=== PATIENT | female | born 1970 | race Caucasian/White ===

== ENCOUNTER 2016-12-06 21:14 | Observation (INO) ==
[2016-12-06] MEDS ORDERED: 0.9 % Sodium Chloride 1,000 ML IVC ONE (21:18)
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
[2016-12-06] MEDS ORDERED: 0.9 % Sodium Chloride 1,000 ML ONE (21:20)
[2016-12-06 21:30] LABS: Basophils % 0.2 %; Eosinophils % 0.4 %; Hematocrit 37.2 % (35.3-44.9); Hemoglobin 12.2 g/dL (11.5-15.4); Immature Granulocytes % 0.3 % (0-4); Lymphocytes % 26.8 %; Mean Corpuscular HGB Conc 32.8 g/dL (31.6-35.5); Mean Corpuscular Hemoglobin 29.6 pg (28.0-33.3); Mean Corpuscular Volume 90.3 fL (83.0-100.0); Mean Platelet Volume 9.5 fL (9.4-12.4); Monocytes # 0.8 K/mcL (0.0-1.3); Monocytes % 6.9 %; Neutrophils # 7.3 K/mcL (1.6-8.9); Platelet Count 290 K/mcL (140-400); Red Blood Count 4.12 M/mcL (3.82-4.97); Red Cell Distribution Width 13.4 % (11.5-14.5); Segmented Neutrophils % 65.4 %
[2016-12-06 21:36] LABS: INR 1.2; Prothrombin Time 12.6 Seconds (9.4-12.1)
[2016-12-06 21:39] LABS: Activated Partial Thrombo Time 34.1 Seconds (26.0-36.0)
[2016-12-06 21:46] LABS: Alanine Aminotransferase 18 Units/L (0-55); Albumin 3.8 g/dL (3.5-5.0); Albumin/Globulin Ratio 0.9 (1.1-2.2); Alkaline Phosphatase 99 Units/L (38-126); Aspartate Amino Transferase 25 Units/L (5-34); BUN/Creatinine Ratio 12 (6-26); Bilirubin,Direct 0.3 mg/dL (0.0-0.5); Bilirubin,Indirect 0.4 mg/dL (0.0-1.2); Bilirubin,Total 0.7 mg/dL (0.2-1.2); Blood Urea Nitrogen 13 mg/dL (7-20); Calcium 9.8 mg/dL (8.6-10.8); Carbon Dioxide 24 mEq/L (19-29); Chloride 109 mEq/L (98-109); Ethanol < 10 mg/dL (0-10); Globulin 4.1 g/dL (2.4-3.5); Glucose 101 mg/dL (70-99); Osmolality,Calculated 298 (280-300); Potassium 3.9 mEq/L (3.5-4.5); Sodium 144 mEq/L (136-145); Total Protein 7.9 g/dL (6.0-8.3); eGFR For African Americans > 60 (> 60); eGFR For Non-African Americans 52 (> 60)
[2016-12-06 22:10] LABS: Thyroid Stimulating Hormone 1.188 mcIU/mL (0.350-4.840)
[2016-12-06 22:37] LABS: Bilirubin,Urine Negative (Negative); Blood,Urine Negative (Negative); Clarity,Urine Cloudy (Clear); Color,Urine Yellow (Yellow); Glucose,Urine (UA) Normal (Normal); Ketones,Urine Negative (Negative); Leukocyte Esterase,Urine Large (Negative); Nitrite,Urine Negative (Negative); Protein,Urine Negative (Neg-Trace); Specific Gravity,Urine 1.011 (1.010-1.025); Urobilinogen,Urine Normal (Normal)
[2016-12-06 22:40] LABS: Bacteria,Urine None Seen per hpf (None-Few); Hyaline Casts,Urine None Seen per lpf (None-Few); RBC,Urine 0-3 per hpf (0-3); Squamous Epithelial Cell,Urine Many per lpf (None-Few); WBC,Urine 30-50 per hpf (0-3)
[2016-12-06 22:43] LABS: Amphetamine Screen,Urine Negative ng/mL (Cutoff=1000); Barbiturate Screen,Urine Negative ng/mL (Cutoff=200); Benzodiazepines Screen,Urine Positive ng/mL (Cutoff=200); Cannabinoid Screen,Urine Negative ng/mL (Cutoff = 50); Cocaine Screen,Urine Negative ng/mL (Cutoff= 300); Opiate Screen,Urine Negative ng/mL (Cutoff=300); Phencyclidine Screen,Urine Negative ng/mL (Cutoff=25)
[2016-12-06] MEDS ORDERED: Ibuprofen 600 MG TABLET PO ONE (23:07)
[2016-12-06] MEDS ORDERED: Ibuprofen 400 MG TABLET PO ONE (23:30)
[2016-12-06] MEDS ORDERED: Ondansetron 4 MG/2 ML VIAL IVP PRN (23:36)
[2016-12-06] MEDS ORDERED: Acetaminophen 325 MG TABLET PO PRN (23:36)
[2016-12-06] MEDS ORDERED: Naloxone 0.4 MG/ML INJ IVP PRN (23:36)
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
[2016-12-07] MEDS: 0.9 % Sodium Chloride 1,000 ML IVC SCH ×2 (00:39→10:57)
[2016-12-07 05:41] LABS: Basophils % 0.2 %; Eosinophils # 0.1 K/mcL (0.0-0.6); Eosinophils % 0.6 %; Hematocrit 33.1 % (35.3-44.9); Hemoglobin 10.7 g/dL (11.5-15.4); Immature Granulocytes % 0.2 % (0-4); Lymphocytes # 2.9 K/mcL (0.6-4.6); Lymphocytes % 34.8 %; Mean Corpuscular HGB Conc 32.3 g/dL (31.6-35.5); Mean Corpuscular Volume 92.7 fL (83.0-100.0); Monocytes # 0.6 K/mcL (0.0-1.3); Monocytes % 7.5 %; Neutrophils # 4.6 K/mcL (1.6-8.9); Platelet Count 257 K/mcL (140-400); Red Blood Count 3.57 M/mcL (3.82-4.97); Red Cell Distribution Width 13.6 % (11.5-14.5); Segmented Neutrophils % 56.7 %
[2016-12-07 06:04] LABS: BUN/Creatinine Ratio 12 (6-26); Blood Urea Nitrogen 10 mg/dL (7-20); Calcium 8.6 mg/dL (8.6-10.8); Carbon Dioxide 24 mEq/L (19-29); Chloride 114 mEq/L (98-109); Glucose 73 mg/dL (70-99); Osmolality,Calculated 298 (280-300); Potassium 3.9 mEq/L (3.5-4.5); Sodium 145 mEq/L (136-145); eGFR For African Americans > 60 (> 60); eGFR For Non-African Americans > 60 (> 60)
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
[2016-12-07 14:56] VITALS: BP 158/85
--- NOTE | 2016-12-07 16:16 | Consult Note ---
Date of Encounter: 12/07/16 Time of Encounter: 14:30 Assessment & Recommendation (1) Bipolar disorder Current visit: Yes Status: Chronic Assessment & Recommendation: I recommended admission to psychiatric unit for stabilization of the patient on her medication on an elective basis, she declined and will follow-up with her outpatient mental health clinic. Thank you for consultation Patient is stable from psychiatric standpoint and can be discharged when medically stable. Qualifiers: Active/Remission status: currently active Current bipolar episode type: depressed Current episode severity: moderate Qualified Code(s): F31.32 - Bipolar disorder, current episode depressed, moderate History of Present Illness Patient: new to practice Requesting Physician: Carin Skinner Reason for consult: Depression, bipolar, altered mental status History of present illness: Ms. Ferrell is a 46 year old female admitted to the hospital for treatment of altered mental status and possible overdose on medication. Psychiatric consultation was requested to evaluate her symptoms and possible overdose. Patient has history of bipolar disorder and depression and has been in psychiatric treatment for many years and recently was changed to a new mental health's service that she was telepsychiatry for medication management. Patient stated her medication has been changed recently but she was not aware of the change augment remember medication name. She denied having an overdose and denied any suicidal ideation or intent and her was in the room and confirmed that she never attempted overdose or suicide in the past. She expresses dissatisfaction with her current psychiatric appointments and believe that she needs medication review and evaluation. When I recommended that patient be admitted to psychiatric units. Evaluate and stabilize her condition she declined and the confirms that she would not be willing to be admitted to psychiatry. CC: Carin Skinner Past Med Surg Social Fam HX - Past Medical History Medical history: arthritis, coronary artery disease, GERD, hyperlipidemia, hypertension, other - Past Surgical History Surgical History: , cholecystectomy - Social History Smoking Status: Never smoker Smokeless Tobacco Status: No Alcohol use: none Drug use: none - Family History Mother Adopted: No Living Status: Still Living Medications & Allergies Ferrous Sulfate [Iron] 325 mg PO DAILY 08/08/15 [History] Gabapentin [Neurontin] 300 mg PO BID 08/08/15 [History] Omeprazole [PriLOSEC] 20 mg PO DAILY 08/08/15 [History] Aspirin 81 mg PO DAILY #31 tab.chew 08/10/15 [Rx] Baclofen 10 mg PO TID 12/06/16 [History] Losartan [Cozaar] 25 mg PO DAILY 12/06/16 [History] OLANZapine [Zyprexa] 5 mg PO HS 12/06/16 [History] diazePAM [Valium] 5 mg PO BID PRN 12/06/16 [History] FLUoxetine HCl [Prozac] 20 mg PO DAILY 12/07/16 [History] Pravastatin Sodium [Pravastatin Sodium] 10 mg PO DAILY 12/07/16 [History] Allergies quetiapine [From Seroquel] Adverse Reaction (Verified 12/07/16 09:58) Shakiness Mental Status Exam Patient orientation: Yes Person, Yes Time, Yes Place Level of alertness: Alert Patient appearance: Appropriate, Unkempt, Disheveled Behavior: cooperative, anxious, tearful, restless, guarded Psychomotor activity: Increased Eye contact: Minimal Contact Mood description: Anxious, Labile Affect description: congruent with mood, constricted Speech pattern: Normal rate, Normal rhythm, Normal tone, Coherent Speech volume: Normal Thought process: Linear, Goal Oriented Thought content: No Suicidal ideation, No Homicidal ideation, No Overt delusions Perceptual disturbances: No Auditory hallucinations, No Visual hallucinations Attention span: Capable of Focused Attention Memory description: Grossly Intact Patient reliability: Reliable Historian Intelligence estimate: Average Judgment: Limited Insight: Partial Results - Vital Signs Vital signs: Temp Pulse Resp BP Pulse Ox 97.5 F L 60 16 158/85 96 12/07/16 14:54 12/07/16 14:54 12/07/16 14:54 12/07/16 14:54 12/07/16 14:54 - Labs Labs: Laboratory Last Values WBC 8.2 K/mcL (4.3-11.1) 12/07/16 03:46 RBC 3.57 M/mcL (3.82-4.97) L 12/07/16 03:46 Hgb 10.7 g/dL (11.5-15.4) L D 12/07/16 03:46 Hct 33.1 % (35.3-44.9) L 12/07/16 03:46 MCV 92.7 fL (83.0-100.0) 12/07/16 03:46 MCH 30.0 pg (28.0-33.3) 12/07/16 03:46 MCHC 32.3 g/dL (31.6-35.5) 12/07/16 03:46 RDW 13.6 % (11.5-14.5) 12/07/16 03:46 Plt Count 257 K/mcL (140-400) 12/07/16 03:46 MPV 10.0 fL (9.4-12.4) 12/07/16 03:46 Immature Gran % 0.2 % (0-4) 12/07/16 03:46 Seg Neutrophils % 56.7 % 12/07/16 03:46 Lymphocytes % 34.8 % 12/07/16 03:46 Monocytes % 7.5 % 12/07/16 03:46 Eosinophils % 0.6 % 12/07/16 03:46 Basophils % 0.2 % 12/07/16 03:46 Neutrophils # 4.6 K/mcL (1.6-8.9) 12/07/16 03:46 Lymphocytes # 2.9 K/mcL (0.6-4.6) 12/07/16 03:46 Monocytes # 0.6 K/mcL (0.0-1.3) 12/07/16 03:46 Eosinophils # 0.1 K/mcL (0.0-0.6) 12/07/16 03:46 Basophils # 0.0 K/mcL (0.0-0.2) 12/07/16 03:46 PT 12.6 Seconds (9.4-12.1) H 12/06/16 21:23 INR 1.2 12/06/16 21:23 APTT 34.1 Seconds (26.0-36.0) 12/06/16 21:23 Sodium 145 mEq/L (136-145) 12/07/16 03:46 Potassium 3.9 mEq/L (3.5-4.5) 12/07/16 03:46 Chloride 114 mEq/L (98-109) H 12/07/16 03:46 Carbon Dioxide 24 mEq/L (19-29) 12/07/16 03:46 BUN 10 mg/dL (7-20) 12/07/16 03:46 Creatinine 0.83 mg/dL (0.57-1.11) 12/07/16 03:46 Est GFR ( Amer) > 60 (> 60) 12/07/16 03:46 Est GFR (Non-Af Amer) > 60 (> 60) 12/07/16 03:46 BUN/Creatinine Ratio 12 (6-26) 12/07/16 03:46 Glucose 73 mg/dL (70-99) 12/07/16 03:46 POC Glucose 109 (58-89) H 12/06/16 21:21 Calculated Osmolality 298 (280-300) 12/07/16 03:46 Calcium 8.6 mg/dL (8.6-10.8) 12/07/16 03:46 Total Bilirubin 0.7 mg/dL (0.2-1.2) 12/06/16 21:23 Direct Bilirubin 0.3 mg/dL (0.0-0.5) 12/06/16 21:23 Indirect Bilirubin 0.4 mg/dL (0.0-1.2) 12/06/16 21:23 AST 25 Units/L (5-34) 12/06/16 21:23 ALT 18 Units/L (0-55) 12/06/16 21:23 Alkaline Phosphatase 99 Units/L (38-126) 12/06/16 21:23 Troponin I 0.00 ng/mL (0-0.03) 12/06/16 21:23 Serum Total Protein 7.9 g/dL (6.0-8.3) 12/06/16 21:23 Albumin 3.8 g/dL (3.5-5.0) 12/06/16 21:23 Globulin 4.1 g/dL (2.4-3.5) H 12/06/16 21:23 Albumin/Globulin Ratio 0.9 (1.1-2.2) L 12/06/16 21:23 TSH 1.188 mcIU/mL (0.350-4.840) 12/06/16 21:23 Urine Color Yellow (Yellow) 12/06/16 22:15 Urine Clarity Cloudy (Clear) A 12/06/16 22:15 Urine pH 6.0 pH Units (5.0-8.0) 12/06/16 22:15 Ur Specific [place] 1.011 (1.010-1.025) 12/06/16 22:15 Urine Protein Negative mg/dL (Neg-Trace) 12/06/16 22:15 Urine Glucose (UA) Normal mg/dL (Normal) 12/06/16 22:15 Urine Ketones Negative mg/dL (Negative) 12/06/16 22:15 Urine Blood Negative (Negative) 12/06/16 22:15 Urine Nitrite Negative (Negative) 12/06/16 22:15 Urine Bilirubin Negative (Negative) 12/06/16 22:15 Urine Urobilinogen Normal mg/dL (Normal) 12/06/16 22:15 Ur Leukocyte Esterase Large (Negative) H 12/06/16 22:15 Urine Microscopic RBC 0-3 per hpf (0-3) 12/06/16 22:15 Urine Microscopic WBC 30-50 per hpf (0-3) H 12/06/16 22:15 Ur Squamous Epith Cells Many per lpf (None-Few) H 12/06/16 22:15 Urine Bacteria None Seen per hpf (None-Few) 12/06/16 22:15 Hyaline Casts None Seen per lpf (None-Few) 12/06/16 22:15 Ur Culture Indicated? YES (NO) A 12/06/16 22:15 Urine Opiates Screen Negative ng/mL (Hhwqmw=249) 12/06/16 22:15 Ur Barbiturates Screen Negative ng/mL (Ixizoi=953) 12/06/16 22:15 Ur Phencyclidine Scrn Negative ng/mL (Cutoff=25) 12/06/16 22:15 Ur Amphetamines Screen Negative ng/mL (Mbfoqr=3490) 12/06/16 22:15 U Benzodiazepines Scrn Positive ng/mL (Qklaap=930) H 12/06/16 22:15 Urine Cocaine Screen Negative ng/mL (Cutoff= 300) 12/06/16 22:15 U Marijuana (THC) Screen Negative ng/mL (Cutoff = 50) 12/06/16 22:15 Ethyl Alcohol < 10 mg/dL (0-10) 12/06/16 21:23 Consult Discharge Plan - Plan Referrals: Kobe Cruz MD [Primary Care Provider] -
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
--- NOTE | 2016-12-07 18:16 | Electrocardiograph Report ---
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
== END 2016-12-07 18:25 | disposition home or self-care (01) ==
LOC: EMEROO 21:14 → 3BNU 21:14 → SUATTDRO 23:10 → 3BNU 23:40
PROVIDERS: ADMIT Internal Medicine; ATTEND Nurse Practitioner Family

== ENCOUNTER 2017-11-29 21:54 | Observation (INO) ==
[2017-11-29] MEDS ORDERED: Nitroglycerin 0.4 MG TAB.SUBL SL ONE (22:09)
[2017-11-29] MEDS ORDERED: Pantoprazole 40 MG VIAL IVP ONE (22:09)
[2017-11-29] MEDS ORDERED: Aspirin 81 MG TAB.CHEW PO ONE (22:09)
--- NOTE | 2017-11-29 22:11 | Emergency Department Note ---
Disposition Clinical Impression: Dyspnea Chest pain Qualifiers: Chest pain type: unspecified Qualified Code(s): R07.9 - Chest pain, unspecified Disposition: Admitted As Inpatient Condition: Fair Time of Disposition: 00:30 Chest Pain HPI - General Chief Complaint: ED Chest Pain Stated Complaint: chest pain Time Seen by Provider: 11/29/17 22:08 Source: patient Limitations: no limitations Vital Signs Reviewed: Yes Nursing Notes Reviewed: Yes - History of Present Illness HPI Narrative: Patient is a 47-year-old female who presents to [facility] ED with a chief complaint of substernal chest pain. States it is a pressure sensation. Started approximately 45 minutes ago. Denies any nausea, vomiting, fever or chills. States she just vaporize marijuana approximately 3 hours prior. She also ate a large tub ice cream prior to arrival. Denies any abdominal pain, problems with urination or bowel movements. No prior history of cardiac problems. Pt complaint: chest pain Onset (ago): Just [facility] Duration: constant Pain Location: substernal Severity: severe Severity scale (1-10): 10 Quality: aching, heaviness Pain Radiation: none Improves with: nothing Worsens with: nothing Associated symptoms: Denies: nausea, vomiting, dyspnea, fever, cough Treatments prior to arrival chest pain: none - Related Data Home Medications Medication Instructions Recorded Confirmed Ferrous Sulfate [Iron] 325 mg PO DAILY 08/08/15 12/07/16 Gabapentin [Neurontin] 300 mg PO BID 08/08/15 12/07/16 Omeprazole [PriLOSEC] 20 mg PO DAILY 08/08/15 12/07/16 Baclofen 10 mg PO TID 12/06/16 12/07/16 Losartan [Cozaar] 25 mg PO DAILY 12/06/16 12/07/16 OLANZapine [Zyprexa] 5 mg PO HS 12/06/16 12/07/16 diazePAM [Valium] 5 mg PO BID PRN 12/06/16 12/07/16 FLUoxetine HCl [Prozac] 20 mg PO DAILY 12/07/16 12/07/16 Pravastatin Sodium 10 mg PO DAILY 12/07/16 12/07/16 Previous Rx's Medication Instructions Recorded Aspirin 81 mg PO DAILY #31 tab.chew 08/10/15 Ciprofloxacin HCl [Cipro] 250 mg PO BID #10 tab 12/07/16 predniSONE [PredniSONE] 60 mg PO DAILY #15 tablet 01/29/17 Tramadol HCl [Ultram] 50 mg PO TID PRN #10 tab 04/11/17 Allergies Allergy/AdvReac Type Severity Reaction Status Date / Time quetiapine [From Seroquel] AdvReac Shakiness Verified 04/11/17 16:49 All systems ED: reviewed and negative except as stated. 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: endometriosis, other - Social History Smoking Status: Never smoker Alcohol use: Reports: none Drug use: Reports: marijuana Physical Exam - General Limitations: no limitations General appearance: alert, in no apparent distress - Head Head exam: atraumatic, normocephalic, normal inspection - Eye Eye exam: Present: normal appearance, EOMI - ENT ENT exam: normal exam, normal oropharynx, mucous membranes moist - Neck Neck exam: Present: normal inspection, full ROM, trachea midline - Chest Chest inspection: Present: normal inspection, symmetric chest wall rise - Respiratory Respiratory exam: Present: normal lung sounds bilaterally - Cardiovascular Cardiovascular exam: Present: regular rate, normal rhythm - Abdominal Exam Abdominal exam: Present: soft, Non-Tender. Absent: tenderness, distention, guarding, rebound, rigidity - Extremities Exam Extremities exam: Present: normal inspection, full ROM. Absent: tenderness, pedal edema - Back Exam Back exam: Present: normal inspection, full ROM. Absent: tenderness - Neurological Exam Neurological exam: Present: alert, oriented X3 - Psychiatric Psychiatric exam: Present: normal affect, normal mood - Skin Skin exam: Present: warm, dry, intact, normal color Course Course Narrative: Patient seen and examined. Chest pain. Recent cannabinoid use. No history of prior cardiac issues. We will do a cardiopulmonary workup. It is possible that this may be related to her acid reflux due to her just having eaten an entire tablet ice cream prior to this. We will try some protonic as well. We will also try nitroglycerin to see if this helps relieve any pain. We will give her a full dose aspirin. - Reevaluation(s) Reevaluation #1: Patient's chest pain improved from a 10 out of 10 to a 2 out of 10 following sublingual nitroglycerin. The lab work is otherwise unremarkable. I discussed the results with the patient. Recommend admission for chest pain/cardiac workup. Patient understands and agrees to be admitted. Patient given an aspirin. I discussed with the hospitalist who has accepted patient for admission. Time: 00:29 Vital Signs Temperature 97.6 F 11/29/17 21:54 Pulse Rate 85 11/29/17 21:54 Respiratory Rate 26 11/29/17 21:54 Blood Pressure 155/90 11/29/17 21:54 O2 Sat by Pulse Oximetry 100 11/29/17 21:54 Temperature 97.5 F L 11/30/17 02:42 Pulse Rate 78 11/30/17 02:42 Respiratory Rate 18 11/30/17 02:42 Blood Pressure 140/91 11/30/17 02:42 O2 Sat by Pulse Oximetry 98 11/30/17 02:42 Oxygen Delivery Oxygen Delivery Nasal Cannula Chest Pain - Medical Records Medical records reviewed: Yes I reviewed the patient's medical records. - Lab Data Lab results reviewed: Yes I reviewed the patient's lab results. Result diagrams: 11/29/17 22:19 11/29/17 22:19 Lab Results 11/29/17 11/29/17 11/29/17 Range/Units 22:09 22:19 22:19 WBC 8.7 (4.3-11.1) K/mcL RBC 3.82 (3.82-4.97) M/mcL Hgb 12.2 (11.5-15.4) g/dL Hct 34.6 L (35.3-44.9) % MCV 90.6 (83.0-100.0) fL MCH 31.9 (28.0-33.3) pg MCHC 35.3 (31.6-35.5) g/dL RDW 13.6 (11.5-14.5) % Plt Count 260 (140-400) K/mcL MPV 9.7 (9.4-12.4) fL Immature Gran % 0.1 (0-4) % Seg Neutrophils % 56.2 % Lymphocytes % 36.9 % Monocytes % 6.1 % Eosinophils % 0.5 % Basophils % 0.2 % Neutrophils # 4.9 (1.6-8.9) K/mcL Lymphocytes # 3.2 (0.6-4.6) K/mcL Monocytes # 0.5 (0.0-1.3) K/mcL Eosinophils # 0.0 (0.0-0.6) K/mcL Basophils # 0.0 (0.0-0.2) K/mcL Nucleated RBCs/100 WBC 0.2 H (0) /100 WBC D-Dimer (0-500) ng/mLFEU Sodium 138 (136-145) mEq/L Potassium 3.6 (3.5-5.1) mEq/L Chloride 107 (98-107) mEq/L Carbon Dioxide 22 L (23-29) mEq/L BUN 14 (6-20) mg/dL Creatinine 1.04 (0.60-1.20) mg/dL Est GFR ( Amer) > 60 (> 60) Est GFR (Non-Af Amer) 57 L (> 60) BUN/Creatinine Ratio 13 (6-26) Glucose 100 (70-105) mg/dL Calculated Osmolality 287 (280-300) Calcium 9.1 (8.6-10.3) mg/dL Troponin I < 0.03 (< 0.04) ng/mL Lipase 39 (11-82) Units/L 05//18 Range/Units 22:20 WBC (4.3-11.1) K/mcL RBC (3.82-4.97) M/mcL Hgb (11.5-15.4) g/dL Hct (35.3-44.9) % MCV (83.0-100.0) fL MCH (28.0-33.3) pg MCHC (31.6-35.5) g/dL RDW (11.5-14.5) % Plt Count (140-400) K/mcL MPV (9.4-12.4) fL Immature Gran % (0-4) % Seg Neutrophils % % Lymphocytes % % Monocytes % % Eosinophils % % Basophils % % Neutrophils # (1.6-8.9) K/mcL Lymphocytes # (0.6-4.6) K/mcL Monocytes # (0.0-1.3) K/mcL Eosinophils # (0.0-0.6) K/mcL Basophils # (0.0-0.2) K/mcL Nucleated RBCs/100 WBC (0) /100 WBC D-Dimer 439 (0-500) ng/mLFEU Sodium (136-145) mEq/L Potassium (3.5-5.1) mEq/L Chloride (98-107) mEq/L Carbon Dioxide (23-29) mEq/L BUN (6-20) mg/dL Creatinine (0.60-1.20) mg/dL Est GFR ( Amer) (> 60) Est GFR (Non-Af Amer) (> 60) BUN/Creatinine Ratio (6-26) Glucose (70-105) mg/dL Calculated Osmolality (280-300) Calcium (8.6-10.3) mg/dL Troponin I (< 0.04) ng/mL Lipase (11-82) Units/L - Radiology Data Radiology results reviewed: Yes I reviewed the patient's radiology results. Chest X-Ray 11/29/17 22:09 IMPRESSION: No acute cardiopulmonary process identified. D/ / Cesar Ferrer MD / Cesar Ferrer MD Interpreting Provider: Cesar Ferrer MD - EKG Data EKG attestation: Yes I reviewed and interpreted this EKG. EKG results narrative: EKG done at 2205 shows normal sinus rhythm with a rate of [address] elevation or depression noted. Normal axis. Prominent Q-wave noted in lead 3. No prior EKGs for comparison. Heart Score - Score History: Slightly Suspicious EKG: Non Specific repolarisation Disturbance Age: 45-65 Risk Factors: 1-2 risk factors Troponin: Less than normal limit HEART Score Total: 3 Attestation Statement - Attestation Attestation: I examined this patient and my medical decision-making was reviewed with the Resident Physician. I agree with the documented findings, disposition and treatment plan as described except to the extent set forth below. Patient has significant comorbidities and no previous cardiac workup and now having typical chest pain features. We will proceed with admission for turning of critical biomarkers as well as serial EKGs.
[2017-11-29 22:41] LABS: Basophils % 0.2 %; Eosinophils % 0.5 %; Hematocrit 34.6 % (35.3-44.9); Hemoglobin 12.2 g/dL (11.5-15.4); Immature Granulocytes % 0.1 % (0-4); Lymphocytes # 3.2 K/mcL (0.6-4.6); Lymphocytes % 36.9 %; Mean Corpuscular HGB Conc 35.3 g/dL (31.6-35.5); Mean Corpuscular Hemoglobin 31.9 pg (28.0-33.3); Mean Corpuscular Volume 90.6 fL (83.0-100.0); Mean Platelet Volume 9.7 fL (9.4-12.4); Monocytes # 0.5 K/mcL (0.0-1.3); Monocytes % 6.1 %; Neutrophils # 4.9 K/mcL (1.6-8.9); Nucleated Red Blood Cells 0.2 /100 WBC (0); Platelet Count 260 K/mcL (140-400); Red Blood Count 3.82 M/mcL (3.82-4.97); Red Cell Distribution Width 13.6 % (11.5-14.5); Segmented Neutrophils % 56.2 %
[2017-11-29 23:01] LABS: BUN/Creatinine Ratio 13 (6-26); Blood Urea Nitrogen 14 mg/dL (6-20); Calcium 9.1 mg/dL (8.6-10.3); Carbon Dioxide 22 mEq/L (23-29); Chloride 107 mEq/L (98-107); Glucose 100 mg/dL (70-105); Osmolality,Calculated 287 (280-300); Potassium 3.6 mEq/L (3.5-5.1); Sodium 138 mEq/L (136-145); eGFR For African Americans > 60 (> 60); eGFR For Non-African Americans 57 (> 60)
[2017-11-29 23:02] LABS: Troponin I < 0.03 ng/mL (< 0.04)
--- NOTE | 2017-11-30 00:10 | Internal Med History&Physical ---
Date of Encounter: 11/30/17 Time of Encounter: 00:09 Internal Medicine - H&P: HPI Chief complaint: chest pain Admitted From: Emergency Dept Plans for Post Hospital Care: Home History of present illness: Ms. Ferrell is a 47 year old female hypertension, HLD, bipolar disorder, GERD, marijuana use who presents with chest pain that first started this evening. It is substernal with radiation to the back. She was also diaphoretic and short of breath. She was driving at the time. Pain was 10/10. Came to the ED and given ASA 324 mg and SL nitro with close to resolution of pain. EKG with nothing acute. Chest x-ray was clear. labs show a creatinine that is above baseline. She was vaping before this and had a large amount of ice cream as well. Denies fever, chills, headache, blurry vision, nausea, vomiting, abdominal pain, diarrhea, constipation, urinary symptoms, or neurological symptoms. The patient never had cardiac workup in the past. Past Med Surg Social Fam HX - Past Medical History Medical history: arthritis, coronary artery disease, GERD, hyperlipidemia, hypertension, other Psychiatric history: anxiety, depression - Past Surgical History Surgical History: , cholecystectomy - Social History Smoking Status: Never smoker Smokeless Tobacco Status: (vap pen) Alcohol use: none Drug use: marijuana - Family History Mother Adopted: No Living Status: Still Living Internal Medicine - H&P: Meds Ferrous Sulfate [Iron] 325 mg PO DAILY 08/08/15 [History] Gabapentin [Neurontin] 300 mg PO BID 08/08/15 [History] Omeprazole [PriLOSEC] 20 mg PO DAILY 08/08/15 [History] Aspirin 81 mg PO DAILY #31 tab.chew 08/10/15 [Rx] Baclofen 10 mg PO TID 12/06/16 [History] Losartan [Cozaar] 25 mg PO DAILY 12/06/16 [History] OLANZapine [Zyprexa] 5 mg PO HS 12/06/16 [History] diazePAM [Valium] 5 mg PO BID PRN 12/06/16 [History] Ciprofloxacin HCl [Cipro] 250 mg PO BID #10 tab 12/07/16 [Rx] FLUoxetine HCl [Prozac] 20 mg PO DAILY 12/07/16 [History] Pravastatin Sodium 10 mg PO DAILY 12/07/16 [History] predniSONE [PredniSONE] 60 mg PO DAILY #15 tablet 01/29/17 [Rx] Tramadol HCl [Ultram] 50 mg PO TID PRN #10 tab 04/11/17 [Rx] 3 Allergy/AdvReac Type Severity Reaction Status Date / Time quetiapine [From Seroquel] AdvReac Shakiness Verified 04/11/17 16:49 All Systems PM: A 10-system review of systems was performed and is negative for pertinent findings except as documented above in the HPI. Review of systems: All systems reviewed are negative except as mentioned above - Constitutional Vitals: Temp Pulse Resp BP Pulse Ox 97.6 F 78 14 114/73 95 11/29/17 21:54 11/29/17 23:55 11/29/17 23:55 11/29/17 23:55 11/29/17 23:55 Exam: GEN: NAD HEENT: AT, NC, No cyanosis, oral mucosa is moist, No JVD Lymphatics: No lymphadenoapthy Eyes: Extrocular muscles intact, anicteric CVS:RRR. S1, S2, No m/r/g RESP: CTAB ABD: Soft, NT, ND, +BS EXT: No edema, No rashes, 2+ DP NEURO: Nonfocal, CN II-XII intact, No focal motor or sensory deficits Psych: Cooperative, Not anxious or depressed Internal Med - H&P Results - Labs CBC & Chem 7: 11/29/17 22:19 11/29/17 22:19 Labs: Short CBC 11/29/17 Range/Units 22:19 WBC 8.7 (4.3-11.1) K/mcL Hgb 12.2 (11.5-15.4) g/dL Hct 34.6 L (35.3-44.9) % Plt Count 260 (140-400) K/mcL Neutrophils # 4.9 (1.6-8.9) K/mcL BMP 11/29/17 22:19 Sodium 138 Potassium 3.6 Chloride 107 Carbon Dioxide 22 L BUN 14 Creatinine 1.04 Glucose 100 Calcium 9.1 Cardiac Enzymes 11/29/17 Range/Units 22:19 Troponin I < 0.03 (< 0.04) ng/mL - Impressions ITS Impressions Chest X-Ray 11/29/17 22:09 IMPRESSION: No acute cardiopulmonary process identified. D/ / Cesar Ferrer MD / Cesar Ferrer MD Interpreting Provider: Cesar Ferrer MD - Assessment and plan (1) Chest pain Current Visit: Yes Status: Acute Assessment and plan: We will admit the patient to telemetry. Trend cardiac enzymes. Stress test in the morning. Check A1c and lipid panel. Possibly GERD/GI symptoms after with vaping and eating ice cream. Patient is ready been given aspirin in the ED. We will resume home aspirin. Resume statin. Qualifiers: Chest pain type: unspecified Qualified Code(s): R07.9 - Chest pain, unspecified (2) Acute renal failure (ARF) Current Visit: Yes Status: Acute Assessment and plan: This is mild. We will gently hydrate and see what her kidney function improves in the morning. Avoid nephrotoxins. Qualifiers: Acute renal failure type: unspecified Qualified Code(s): N17.9 - Acute kidney failure, unspecified (3) Bipolar disorder Current Visit: No Status: Chronic Assessment and plan: Resume home medications. Qualifiers: Active/Remission status: currently active Current bipolar episode type: depressed Current episode severity: moderate Qualified Code(s): F31.32 - Bipolar disorder, current episode depressed, moderate (4) GERD (gastroesophageal reflux disease) Current Visit: No Status: Chronic Assessment and plan: Resume home meds. Qualifiers: Esophagitis presence: without esophagitis Qualified Code(s): K21.9 - Gastro -esophageal reflux disease without esophagitis (5) Hypertension Current Visit: No Status: Chronic Assessment and plan: Resume home antihypertensives. Qualifiers: Hypertension type: essential hypertension Qualified Code(s): I10 - Essential (primary) hypertension (6) DVT prophylaxis Current Visit: Yes Status: Acute Assessment and plan: Heparin subcutaneous - Time Spent With Patient Total time spent is greater than 50% in coordination of care (as documented) at patient's floor/unit and/or counseling patient:
[2017-11-30] MEDS ORDERED: Naloxone 0.4 MG/ML INJ IVP PRN (00:11)
[2017-11-30] MEDS ORDERED: Acetaminophen 325 MG TABLET PO PRN (00:11)
[2017-11-30] MEDS: 0.9 % Sodium Chloride 1,000 ML IVC SCH ×2 (02:35→15:44)
[2017-11-30] MEDS: *HR* Heparin 5,000 UNIT/ML VIAL SQ SCH ×3 (05:12→21:47)
[2017-11-30 05:30] LABS: Basophils % 0.3 %; Eosinophils # 0.1 K/mcL (0.0-0.6); Eosinophils % 0.8 %; Hematocrit 33.8 % (35.3-44.9); Hemoglobin 11.3 g/dL (11.5-15.4); Immature Granulocytes % 0.2 % (0-4); Lymphocytes # 1.9 K/mcL (0.6-4.6); Lymphocytes % 30.5 %; Mean Corpuscular HGB Conc 33.4 g/dL (31.6-35.5); Mean Corpuscular Hemoglobin 30.8 pg (28.0-33.3); Mean Corpuscular Volume 92.1 fL (83.0-100.0); Mean Platelet Volume 9.8 fL (9.4-12.4); Monocytes # 0.5 K/mcL (0.0-1.3); Monocytes % 8.3 %; Neutrophils # 3.8 K/mcL (1.6-8.9); Platelet Count 226 K/mcL (140-400); Red Blood Count 3.67 M/mcL (3.82-4.97); Red Cell Distribution Width 13.8 % (11.5-14.5); Segmented Neutrophils % 59.9 %
[2017-11-30] MEDS ORDERED: Regadenoson 0.4 MG/5 ML SYRINGE IVP ONE (05:34)
[2017-11-30 05:49] LABS: Troponin I < 0.03 ng/mL (< 0.04)
[2017-11-30 05:53] LABS: BUN/Creatinine Ratio 14 (6-26); Blood Urea Nitrogen 12 mg/dL (6-20); Calcium 8.5 mg/dL (8.6-10.3); Carbon Dioxide 24 mEq/L (23-29); Chloride 109 mEq/L (98-107); Chol/HDL Ratio 3.7 (0-4.9); Cholesterol 154 mg/dL (< 200); Glucose 110 mg/dL (70-105); HDL Cholesterol 42 mg/dL (40-59); LDL Cholesterol,Calculated 91 mg/dL (0-99); Osmolality,Calculated 288 (280-300); Potassium 3.8 mEq/L (3.5-5.1); Sodium 139 mEq/L (136-145); Triglycerides 107 mg/dL (< 150); eGFR For African Americans > 60 (> 60); eGFR For Non-African Americans > 60 (> 60)
[2017-11-30 08:47] LABS: Estimated Average Glucose 108 mg/dl; Hemoglobin A1C 5.4 %
--- NOTE | 2017-11-30 14:30 | Internal Med Progress Note ---
Date of Encounter: 11/30/17 Time of Encounter: 14:27 - Assessment and plan (1) Chest pain Current Visit: Yes Status: Acute Assessment and plan: Cont on tele so far neagtive trop No acute Ekg changes High risk for ACS with HTn, Age and obesity Agree with stress test. Pt is not able to finish full test today due to obesity cont ASA Qualifiers: Chest pain type: unspecified Qualified Code(s): R07.9 - Chest pain, unspecified (2) Hypertension Current Visit: No Status: Chronic Assessment and plan: Stable cont home meds Qualifiers: Hypertension type: essential hypertension Qualified Code(s): I10 - Essential (primary) hypertension (3) GERD (gastroesophageal reflux disease) Current Visit: No Status: Chronic Assessment and plan: Resume home meds. Qualifiers: Esophagitis presence: without esophagitis Qualified Code(s): K21.9 - Gastro -esophageal reflux disease without esophagitis (4) Bipolar disorder Current Visit: No Status: Chronic Assessment and plan: Resume home medications also suggested to f/u with her psychiatrist as an out pt since he recently started her on Adderral Qualifiers: Active/Remission status: currently active Current bipolar episode type: depressed Current episode severity: moderate Qualified Code(s): F31.32 - Bipolar disorder, current episode depressed, moderate (5) DVT prophylaxis Current Visit: Yes Status: Acute Assessment and plan: Heparin subcutaneous (6) Acute renal failure (ARF) Current Visit: Yes Status: Ruled-out Assessment and plan: No ARF d/c IVF Qualifiers: Acute renal failure type: unspecified Qualified Code(s): N17.9 - Acute kidney failure, unspecified - Time Spent With Patient Total time spent is greater than 50% in coordination of care (as documented) at patient's floor/unit and/or counseling patient: - Subjective Interval history: Ms. Ferrell is a 47 year old female hypertension, HLD, bipolar disorder, GERD, marijuana use who presents with chest pain that first started this evening. It is substernal with radiation to the back. She was also diaphoretic and short of breath. She was driving at the time. Pain was 10/10. Came to the ED and given ASA 324 mg and SL nitro with close to resolution of pain. EKG with nothing acute. Chest x-ray was clear. Pt denied any CP now. She is resting comfortably. - Constitutional Vitals: Temp Pulse Resp BP Pulse Ox 97.8 F 68 18 138/87 98 11/30/17 11:06 11/30/17 11:06 11/30/17 11:06 11/30/17 11:06 11/30/17 11:06 General appearance: Present: A&O X 3, no acute distress, answers questions appropriately - Head Head exam: Present: atraumatic, normal inspection - Neck Neck exam general surgery: Present: supple - Respiratory Respiratory exam: Present: decreased breath sounds. Absent: rales, respiratory distress, rhonchi, wheezes - Cardiovascular Cardiovascular exam: Present: RRR, +S1, +S2. Absent: tachycardia - GI/Abdominal GI/Abdominal exam: Present: normal bowel sounds, soft. Absent: rebound, rigid, tenderness - Extremities Exam Extremities exam: Absent: calf tenderness, pedal edema, tenderness - Back Exam Back exam: Absent: CVA tenderness (L), CVA tenderness (R) - Neurological Exam Neurological exam: Present: alert, oriented X3 - Psychiatric Psychiatric exam: Present: normal affect, normal mood Internal Medicine: Result - Labs CBC & Chem 7: 11/30/17 04:55 11/30/17 04:55 Labs: Short CBC 11/30/17 Range/Units 04:55 WBC 6.3 (4.3-11.1) K/mcL Hgb 11.3 L (11.5-15.4) g/dL Hct 33.8 L (35.3-44.9) % Plt Count 226 (140-400) K/mcL Neutrophils # 3.8 (1.6-8.9) K/mcL BMP 11/30/17 04:55 Sodium 139 Potassium 3.8 Chloride 109 H Carbon Dioxide 24 BUN 12 Creatinine 0.87 Glucose 110 H Calcium 8.5 L Cardiac Enzymes 11/30/17 Range/Units 04:55 Troponin I < 0.03 (< 0.04) ng/mL - ABG Interpretation ABG results: PT/INR, D-dimer D-Dimer 439 ng/mLFEU (0-500) 11/29/17 22:20 Consult Discharge Plan - Plan Referrals: Kobe Cruz MD [Primary Care Provider] - 12/13/17 9:00 am
[2017-11-30] MEDS ORDERED: BREXPIPRAZOLE 1.5 MG PO SCH (15:30)
[2017-11-30] MEDS ORDERED: DEXTROAMPHETAMINE PO SCH (15:30)
[2017-11-30] MEDS ORDERED: AMPHETAMINE PO SCH (15:30)
[2017-11-30] MEDS: AMPHETAMINE PO SCH (16:48)
[2017-11-30] MEDS: DEXTROAMPHETAMINE PO SCH (16:48)
[2017-11-30] MEDS: BREXPIPRAZOLE 1.5 MG PO SCH (16:49)
[2017-11-30] MEDS: diazePAM 5 MG TABLET PO SCH ×2 (17:19→21:41)
--- NOTE | 2017-11-30 20:33 | Electrocardiograph Report ---
[address] [place], [place] [address] Test Date: 2017-11-29 Pat Name: eYlena Ferrell Department: 102 Room: 3B Gender: F Title Department Manager: Lrs : 1970 Requested By: Deepa Portillo Order Number: [id number] Reading MD: Mat Bhandari Measurements Intervals [place] Rate: 75 P: 42 IN: 142 QRS: 38 QRSD: 97 T: 46 QT: 398 QTc: 427 Interpretive Statements SINUS RHYTHM BASELINE ARTIFACT Electronically Signed On 11-30-2017 20:32:18 EDT by Mat Bhandari
[2017-11-30] MEDS ORDERED: diazePAM 5 MG TABLET PO SCH (21:00)
[2017-11-30] MEDS ORDERED: Gabapentin 300 MG CAPSULE PO SCH (21:00)
[2017-11-30] MEDS ORDERED: traZODone 50 MG TABLET PO SCH (21:00)
[2017-12-01] MEDS: *HR* Heparin 5,000 UNIT/ML VIAL SQ SCH ×2 (04:58→15:11)
[2017-12-01] MEDS: diazePAM 5 MG TABLET PO SCH ×2 (08:53→15:11)
[2017-12-01] MEDS: AMPHETAMINE PO SCH (08:53)
[2017-12-01] MEDS: BREXPIPRAZOLE 1.5 MG PO SCH (08:53)
[2017-12-01] MEDS: DEXTROAMPHETAMINE PO SCH (08:53)
[2017-12-01] MEDS ORDERED: Aspirin 81 MG TAB.CHEW PO SCH (09:00)
[2017-12-01 15:09] VITALS: BP 145/90
--- NOTE | 2017-12-01 15:15 | Cardiology Consult Note ---
Date of Encounter: 12/01/17 Time of Encounter: 15:08 Assessment and Plan (1) Chest pain Current Visit: Yes Status: Acute Atypical chest pain symptoms. Occurred after using vapor cigarette for the first time. ACS r/o was negative. EKG shows NSR with no acute T wave /ST changes, q wave interiorly. Stress test reviewed with patient and borderline abnormal results: Perfusion imaging demonstrates possible mild intensity perfusion defect involving the distal inferolateral wall and apex. Ischemia cannot be excluded. No perfusion evidence for infarct. Pharmacologic stress ECG is negative for ischemia at level of heart rate achieved. No appreciable change from baseline ECG. Gated EF > 70%. I discussed medical management verses more aggressive approach with [facility]. She agrees to medical management and out-pt f/u for continued monitoring. Add beta-dina and statin. Continue aspirin. Out-pt f/u will be scheduled in 2 -3 weeks. Qualifiers: Chest pain type: unspecified Qualified Code(s): R07.9 - Chest pain, unspecified (2) Abnormal stress test Current Visit: Yes Status: Acute Discussion w patient/family: The assessment and plan as outlined above was discussed with the patient and/or family members who expressed understanding and agreement. All questions were answered. Thank you for involving us in the care of your patient. Please call with any questions. History of Present Illness Consult date: 12/01/17 Requesting physician: Adriana Dao Consult reason: abnormal stress Chief complaint: Chest pain History of present illness: Ms. Ferrell is a 47 year old female with past medical history of HTN, bipolar disorder, and cholecystectomy who presented with chest discomfort. She c/o sharp , non-radiating, midsternal chest discomfort while riding in a car with her . Chest pain associated with SOB. She reports newly vaping prior to her symptoms. She also describes previous panic attacks with SOB. Denies chest pain previously. No previous history of CAD. Initial work-up to r/o ACS was negative. She underwent stress test that was found to be abnormal. Past Med Surg Social Fam HX - Past Medical History Attestation: Yes The following information was validated with the patient. Medical history: arthritis, GERD, hypertension, other Psychiatric history: anxiety, depression - Past Surgical History Surgical History: , cholecystectomy - Social History Smoking Status: Never smoker Smokeless Tobacco Status: Yes (vape pen) Alcohol use: none Drug use: marijuana - Family History Mother Adopted: No Living Status: Still Living Medications and Allergies Ferrous Sulfate [Iron] 325 mg PO DAILY 08/08/15 [History] Gabapentin [Neurontin] 600 mg PO HS 08/08/15 [History] Omeprazole [PriLOSEC] 20 mg PO DAILY 08/08/15 [History] Aspirin 81 mg PO DAILY #31 tab.chew 08/10/15 [Rx] Losartan [Cozaar] 25 mg PO DAILY 12/06/16 [History] diazePAM [Valium] 5 mg PO TID 12/06/16 [History] Brexpiprazole [Rexulti] 1.5 mg PO QAM 11/30/17 [History] Dextroamphetamine/Amphetamine [Adderall Xr 10 mg Capsule] 10 mg PO QAM 11/30/17 [History] Promethazine [Phenergan] 25 - 50 mg PO HS 11/30/17 [History] Trazodone HCl 200 mg PO HS 11/30/17 [History] 3 Allergy/AdvReac Type Severity Reaction Status Date / Time quetiapine [From Seroquel] AdvReac Shakiness Verified 04/11/17 16:49 All Systems Review: The remainder of the systems were reviewed and are negative Physical Examination Vital Signs, Last 4 Hours Temp Pulse Resp BP Pulse Ox 12/01/17 11:47 98.2 F 91 17 117/69 94 General: Conversant, No Apparent Distress, Other (Obese female) HEENT: Atraumatic, Normocephaly, Mucus Membranes Moist Neck: No JVD, Normal carotid pulses Cardiac: Reg Rate and Rhythm, Normal S1 and S2, No Murmur Lungs: Normal Breath Sounds, No Wheeze, Rales, Rhonchi Neuro: Alert and responsive, No focal deficits noted Abdomen: Soft, Non-Tender Skin: No rashes noted on visualized skin Musculoskeletal: No Chest Wall Tenderness Extremities: No Clubbing, No Cyanosis, No Edema, Normal Pulses Results 11/30/17 04:55 11/30/17 04:55 - Imaging and Cardiology Stress Test: report reviewed - EKG Interpretation EKG results cardiology: personally reviewed Consult Discharge Plan - Plan Referrals: Kobe gaffney MD [Primary Care Provider] - 12/13/17 9:00 am
--- NOTE | 2017-12-01 17:18 | Discharge Summary ---
- NOTES TO OUTPATIENT PROVIDER Notes to Outpatient Provider: Patient was admitted for chest pain. Stress test showed area of ischemia. She has been evaluated by cardiology. She agrees to medical management and outpatient follow-up. Beta dina and statin have been added, aspirin will continue. Follow-up with cardiology in 2-3 weeks. Date of Encounter: 12/01/17 Time of Encounter: 09:45 - Discharge Diagnosis (1) Hypertension Priority: Secondary Status: Chronic Assessment and Plan: Stable. Well controlled, continue home medications Qualifiers: Hypertension type: essential hypertension Qualified Code(s): I10 - Essential (primary) hypertension (2) GERD (gastroesophageal reflux disease) Priority: Secondary Status: Chronic Assessment and Plan: Chronic. Continue home medications. Qualifiers: Esophagitis presence: without esophagitis Qualified Code(s): K21.9 - Gastro -esophageal reflux disease without esophagitis (3) Bipolar disorder Priority: Secondary Status: Chronic Assessment and Plan: Resume home medications. Chest pain could be caused by recent medication changes including the addition of adderall. Discuss discontinuing medication or changing medication at next visit in 2 days. Qualifiers: Active/Remission status: currently active Current bipolar episode type: depressed Current episode severity: moderate Qualified Code(s): F31.32 - Bipolar disorder, current episode depressed, moderate (4) Chest pain Priority: Secondary Status: Acute Assessment and Plan: Pt denies chest pain today. Pain is not reproducible. Troponins were negative, no acute EKG changes. Stress test showed possible mild intensity perfusion defect involving the distal inferior lateral wall and apex. Ischemia could not be excluded. There is no perfusion evidence for infarct. Gaited EF of greater than 70%. Cardiology was consulted and they have agreed upon medical management with close outpatient follow-up for continued monitoring. Patient has had a beta dina and statin added to her medication regimen. She will continue aspirin. Follow-up with cardiology in 2-3 weeks. Qualifiers: Chest pain type: unspecified Qualified Code(s): R07.9 - Chest pain, unspecified (5) DVT prophylaxis Priority: Secondary Status: Acute Assessment and Plan: Heparin (6) Acute renal failure (ARF) Priority: Secondary Status: Ruled-out Assessment and Plan: Resolved. Qualifiers: Acute renal failure type: unspecified Qualified Code(s): N17.9 - Acute kidney failure, unspecified (7) Obesity Priority: Secondary Status: Chronic Assessment and Plan: Chronic. Continue to encourage lifestyle modifications. Qualifiers: Obesity type: due to excess calories Obesity classification: adult class 2 (BMI 35 - 39.9) Serious obesity comorbidity presence: with serious comorbidity Body mass index: BMI 39.0-39.9 Qualified Code(s): E66.01 - Morbid (severe) obesity due to excess calories; Z68.39 - Body mass index (BMI) 39.0-39.9, adult Hospital course: Ms. Ferrell is a 47 year old female past medical history of syncope, hypertension , GERD, coronary artery disease, depression, bipolar disorder. Patient presents to the emergency room with chest pain. Stress test was found to be abnormal. She has been evaluated by cardiology and they have decided on medical management with beta dina, aspirin, statin, and close follow-up in the office. Patient denies chest pain. Her physical exam is unremarkable. EKG was negative for any ischemic changes, chest x-ray was negative. Troponins negative. Vital signs are stable and within normal limits. Labs are stable and within normal limits. She is stable and appropriate for discharge. Discharge discussed with: patient, family - Time Spent with Patient Total time spent providing and/or coordinating discharge services: Less than 30 minutes - Discharge Medications Prescriptions: Atorvastatin [Lipitor] 40 mg PO HS #30 tablet Metoprolol [Lopressor] 25 mg PO BID #60 tablet Home Medications: Ferrous Sulfate [Iron] 325 mg PO DAILY 08/08/15 [History] Gabapentin [Neurontin] 600 mg PO HS 08/08/15 [History] Omeprazole [PriLOSEC] 20 mg PO DAILY 08/08/15 [History] Aspirin 81 mg PO DAILY #31 tab.chew 08/10/15 [Rx] Losartan [Cozaar] 25 mg PO DAILY 12/06/16 [History] diazePAM [Valium] 5 mg PO TID 12/06/16 [History] Brexpiprazole [Rexulti] 1.5 mg PO QAM 11/30/17 [History] Dextroamphetamine/Amphetamine [Adderall Xr 10 mg Capsule] 10 mg PO QAM 11/30/17 [History] Promethazine [Phenergan] 25 - 50 mg PO HS 11/30/17 [History] Trazodone HCl 200 mg PO HS 11/30/17 [History] Atorvastatin [Lipitor] 40 mg PO HS #30 tablet 12/01/17 [Rx] Metoprolol [Lopressor] 25 mg PO BID #60 tablet 12/01/17 [Rx] Allergies/Adverse Reactions: 3 Allergy/AdvReac Type Severity Reaction Status Date / Time quetiapine [From Seroquel] AdvReac Shakiness Verified 04/11/17 16:49 Date of admission: 11/30/17 01:53 Primary care physician: Kobe Cruz MD Discharging clinician: Kim Storm Anticipated date of discharge: 12/01/17 - Constitutional Vitals: Temp Pulse Resp BP Pulse Ox 98.0 F 75 17 145/90 94 12/01/17 15:08 12/01/17 15:08 12/01/17 15:08 12/01/17 15:08 12/01/17 15:08 General appearance: Present: cooperative, A&O X 3, pleasant, no acute distress, obese, answers questions appropriately - Head Head exam: Present: atraumatic, normal inspection, normocephalic - Eye Eye exam: Present: normal appearance, conjuntiva pink, sclera anicteric - Neck Neck exam general surgery: Present: supple, trachea midline. Absent: lymphadenopathy - Respiratory Respiratory exam: Present: CTAB. Absent: accessory muscle use, rales, rhonchi, wheezes - Cardiovascular Cardiovascular exam: Present: RRR, +S1, +S2. Absent: diastolic murmur, gallop, rubs, systolic murmur - GI/Abdominal GI/Abdominal exam: Present: normal bowel sounds, soft. Absent: distended, tenderness - Extremities Exam Extremities exam: Present: normal capillary refill, normal inspection, warm, radial pulses palpable and symmetrical. Absent: calf tenderness, cyanotic, pedal edema, tenderness - Neurological Exam Neurological exam: Present: alert, oriented X3, no focal deficits. Absent: altered, facial droop, speech deficit - Skin Skin exam: Present: dry, intact, normal color, warm. Absent: rash - Patient Status Disposition: Home, Self-Care Condition: Good Functional capacity at discharge: independent ambulation Overall status at discharge: patient is back to baseline - Discharge Instructions Follow Up With: Mat Bhandari MD [Partnered Physician] - (The office will call you with a follow up appt.) Kobe Cruz MD [Primary Care Provider] - 12/13/17 9:00 am Additional Instructions: Please follow-up with cardiology and it your primary care provider as scheduled. Take your new medications as directed, they have been sent to pharmacy. Resume your home medications. Return to her normal diet and activities as tolerated. Return to emergency department as needed for any other problems or concerns. - Diet and Activity Activity: increase activity as tolerated Diet: diabetic diet
== END 2017-12-01 18:30 | disposition home or self-care (01) ==
LOC: ICNU 21:54 → EMEROO 21:54 → ICNU 11-30 02:32 → 3BNU 11-30 10:24
PROVIDERS: ADMIT Internal Medicine; ATTEND Internal Medicine

== ENCOUNTER 2019-12-31 20:19 | Observation (INO) ==
[2019-12-31 20:47] LABS: Basophils % 0.3 %; Eosinophils # 0.1 K/mcL (0.0-0.6); Eosinophils % 0.6 %; Hematocrit 36.4 % (35.3-44.9); Hemoglobin 11.5 g/dL (11.5-15.4); Immature Granulocytes % 0.3 % (0-4); Lymphocytes # 2.1 K/mcL (0.6-4.6); Lymphocytes % 26.5 %; Mean Corpuscular HGB Conc 31.6 g/dL (31.6-35.5); Mean Corpuscular Hemoglobin 29.7 pg (28.0-33.3); Mean Corpuscular Volume 94.1 fL (83.0-100.0); Monocytes # 0.5 K/mcL (0.0-1.3); Monocytes % 6.9 %; Neutrophils # 5.2 K/mcL (1.6-8.9); Platelet Count 288 K/mcL (140-400); Red Blood Count 3.87 M/mcL (3.82-4.97); Red Cell Distribution Width 14.2 % (11.5-14.5); Segmented Neutrophils % 65.4 %; White Blood Count 7.9 K/mcL (4.3-11.1)
[2019-12-31 20:58] LABS: Prothrombin Time 11.5 Seconds (9.4-12.1)
[2019-12-31 20:59] LABS: Activated Partial Thrombo Time 34.2 Seconds (26.0-36.0)
[2019-12-31 21:03] LABS: Alanine Aminotransferase 18 Units/L (7-52); Albumin 3.8 g/dL (3.5-5.7); Albumin/Globulin Ratio 1.1 (1.1-2.2); Alkaline Phosphatase 97 Units/L (34-104); Aspartate Amino Transferase 19 Units/L (13-39); BUN/Creatinine Ratio 19 (6-26); Bilirubin,Direct 0.1 mg/dL (0.0-0.2); Bilirubin,Indirect 0.4 mg/dL (0.0-1.0); Bilirubin,Total 0.5 mg/dL (0.3-1.0); Blood Urea Nitrogen 16 mg/dL (6-20); Calcium 8.5 mg/dL (8.6-10.3); Carbon Dioxide 27 mEq/L (23-29); Chloride 104 mEq/L (98-107); Ethanol < 10 mg/dL (Less than 10); Globulin 3.5 g/dL (2.4-3.5); Glucose 86 mg/dL (70-105); Osmolality,Calculated 286 (280-300); Potassium 3.8 mEq/L (3.5-5.1); Sodium 138 mEq/L (136-145); Total Protein 7.3 g/dL (6.4-8.9); eGFR For African Americans > 60 (> 60); eGFR For Non-African Americans > 60 (> 60)
[2019-12-31 21:04] LABS: Troponin I < 0.03 ng/mL (< 0.04)
[2019-12-31] MEDS ORDERED: Isovue-370 500 ML BOTTLE IVP ONE (21:08)
[2019-12-31 21:18] LABS: Thyroid Stimulating Hormone 3.121 mcIU/mL (0.340-5.600)
[2019-12-31 21:59] LABS: Bacteria,Urine Few per hpf (None-Few); Bilirubin,Urine Negative (Negative); Blood,Urine Negative (Negative); Clarity,Urine Clear (Clear); Color,Urine Light-Yellow (Yellow); Glucose,Urine (UA) Normal (Normal); Ketones,Urine Negative (Negative); Leukocyte Esterase,Urine Moderate (Negative); Mucus,Urine Few per lpf (None-Few); Nitrite,Urine Negative (Negative); PH,Urine 6.5 pH Units (5.0-8.0); Protein,Urine Negative (Neg-Trace); RBC,Urine 0-3 per hpf (0-3); Squamous Epithelial Cell,Urine Few per hpf (None-Few); Urobilinogen,Urine Normal (Normal)
[2019-12-31 22:07] LABS: Amphetamine Screen,Urine Positive ng/mL (Cutoff=1000); Barbiturate Screen,Urine Negative ng/mL (Cutoff=200); Benzodiazepines Screen,Urine Positive ng/mL (Cutoff=200); Cannabinoid Screen,Urine Negative ng/mL (Cutoff = 50); Cocaine Screen,Urine Negative ng/mL (Cutoff= 300); Opiate Screen,Urine Negative ng/mL (Cutoff=300); Phencyclidine Screen,Urine Negative ng/mL (Cutoff=25)
[2020-01-01] MEDS ORDERED: cefTRIAXone 1,000 MG in Water for inj. (sterile) 10 ML IVP ONE (01:20)
[2020-01-01] MEDS ORDERED: Naloxone 0.4 MG/ML INJ IVP PRN ×2 (02:20→10:51)
[2020-01-01] MEDS ORDERED: Acetaminophen 325 MG TABLET PO PRN ×2 (02:20→10:51)
[2020-01-01] MEDS ORDERED: *HR* Promethazine 25 MG/ML VIAL IVP PRN ×2 (02:20→10:51)
[2020-01-01] MEDS ORDERED: 0.9 % Sodium Chloride 1,000 ML IVC SCH (02:30)
[2020-01-01 04:14] LABS: INR 1.1; Prothrombin Time 12.2 Seconds (9.4-12.1)
[2020-01-01 04:25] LABS: Alanine Aminotransferase 14 Units/L (7-52); Albumin 3.5 g/dL (3.5-5.7); Albumin/Globulin Ratio 1.1 (1.1-2.2); Alkaline Phosphatase 85 Units/L (34-104); Aspartate Amino Transferase 16 Units/L (13-39); BUN/Creatinine Ratio 19 (6-26); Bilirubin,Total 0.5 mg/dL (0.3-1.0); Blood Urea Nitrogen 13 mg/dL (6-20); Calcium 8.5 mg/dL (8.6-10.3); Carbon Dioxide 24 mEq/L (23-29); Chloride 105 mEq/L (98-107); Globulin 3.1 g/dL (2.4-3.5); Glucose 102 mg/dL (70-105); Osmolality,Calculated 284 (280-300); Potassium 3.5 mEq/L (3.5-5.1); Sodium 137 mEq/L (136-145); Total Protein 6.6 g/dL (6.4-8.9); eGFR For African Americans > 60 (> 60); eGFR For Non-African Americans > 60 (> 60)
[2020-01-01 04:39] LABS: Thyroid Stimulating Hormone 3.682 mcIU/mL (0.340-5.600)
[2020-01-01] MEDS ORDERED: DEXTROAMPHETAMINE SULFATE 15 MG PO SCH (10:51)
[2020-01-01] MEDS: 0.9 % Sodium Chloride 1,000 ML IVC SCH ×2 (11:39→20:21)
[2020-01-01] MEDS: Aspirin 81 MG TAB.CHEW PO SCH (11:40)
[2020-01-01] MEDS: *HR* Heparin 5,000 UNIT/ML VIAL SQ SCH (17:54)
[2020-01-01] MEDS ORDERED: cefTRIAXone 1,000 MG in Water for inj. (sterile) 10 ML IVP SCH (21:00)
[2020-01-02] MEDS: *HR* Heparin 5,000 UNIT/ML VIAL SQ SCH (05:19)
[2020-01-02 07:02] VITALS: BP 139/87
[2020-01-02] MEDS: Aspirin 81 MG TAB.CHEW PO SCH (08:18)
[2020-01-02] MEDS ORDERED: polyethylene glycoL 3350 17 GM POWD.PACK PO PRN (11:27)
== END 2020-01-02 10:58 | disposition home or self-care (01) ==
LOC: 2NNU 20:19 → EMEROOARM 20:19 → MERGE 01-01 01:35 → SUATTDRO 01-01 01:35 → 2NNU 01-01 02:53 → 3BNU 01-01 10:50
PROVIDERS: ADMIT Internal Medicine; ATTEND Internal Medicine

== ENCOUNTER 2020-02-07 17:27 | Observation (INO) ==
[2020-02-07 17:41] LABS: Basophils % 0.1 %; Eosinophils % 0.5 %; Hematocrit 36.4 % (35.3-44.9); Hemoglobin 11.6 g/dL (11.5-15.4); Immature Granulocytes % 0.1 % (0-4); Lymphocytes # 2.5 K/mcL (0.6-4.6); Mean Corpuscular HGB Conc 31.9 g/dL (31.6-35.5); Mean Corpuscular Hemoglobin 29.5 pg (28.0-33.3); Mean Corpuscular Volume 92.6 fL (83.0-100.0); Mean Platelet Volume 9.2 fL (9.4-12.4); Monocytes # 0.5 K/mcL (0.0-1.3); Monocytes % 7.3 %; Neutrophils # 4.3 K/mcL (1.6-8.9); Platelet Count 293 K/mcL (140-400); Red Blood Count 3.93 M/mcL (3.82-4.97); Red Cell Distribution Width 13.8 % (11.5-14.5); White Blood Count 7.4 K/mcL (4.3-11.1)
[2020-02-07 18:04] LABS: Alanine Aminotransferase 24 Units/L (7-52); Albumin/Globulin Ratio 1.3 (1.1-2.2); Alkaline Phosphatase 114 Units/L (34-104); Aspartate Amino Transferase 22 Units/L (13-39); BUN/Creatinine Ratio 20 (6-26); Bilirubin,Total 0.5 mg/dL (0.3-1.0); Blood Urea Nitrogen 16 mg/dL (6-20); Calcium 9.8 mg/dL (8.6-10.3); Carbon Dioxide 29 mEq/L (23-29); Chloride 104 mEq/L (98-107); Globulin 3.2 g/dL (2.4-3.5); Glucose 105 mg/dL (70-105); Osmolality,Calculated 290 (280-300); Potassium 3.9 mEq/L (3.5-5.1); Sodium 139 mEq/L (136-145); Total Protein 7.2 g/dL (6.4-8.9); Troponin I < 0.03 ng/mL (< 0.04); eGFR For African Americans > 60 (> 60); eGFR For Non-African Americans > 60 (> 60)
[2020-02-07] MEDS ORDERED: Aspirin 325 MG TABLET PO ONE (18:42)
[2020-02-07 18:52] LABS: Bacteria,Urine Few per hpf (None-Few); Bilirubin,Urine Negative (Negative); Blood,Urine Negative (Negative); Calcium Oxalate Crystals,Urine Present; Clarity,Urine Clear (Clear); Color,Urine Colorless (Yellow); Glucose,Urine (UA) Normal (Normal); Ketones,Urine Negative (Negative); Leukocyte Esterase,Urine Moderate (Negative); Nitrite,Urine Negative (Negative); Protein,Urine Negative (Neg-Trace); Specific Gravity,Urine 1.006 (1.010-1.025); Squamous Epithelial Cell,Urine Moderate per hpf (None-Few); Urobilinogen,Urine Normal (Normal)
[2020-02-07 18:58] LABS: Amphetamine Screen,Urine Negative ng/mL (Cutoff=1000); Barbiturate Screen,Urine Negative ng/mL (Cutoff=200); Benzodiazepines Screen,Urine Positive ng/mL (Cutoff=200); Cannabinoid Screen,Urine Positive ng/mL (Cutoff = 50); Cocaine Screen,Urine Negative ng/mL (Cutoff= 300); Opiate Screen,Urine Negative ng/mL (Cutoff=300); Phencyclidine Screen,Urine Negative ng/mL (Cutoff=25)
[2020-02-07] MEDS ORDERED: Naloxone 0.4 MG/ML INJ IVP PRN (20:14)
[2020-02-07] MEDS ORDERED: Acetaminophen 325 MG TABLET PO PRN (20:14)
[2020-02-07] MEDS ORDERED: *HR* Promethazine 25 MG/ML VIAL IVP PRN (20:14)
[2020-02-07] MEDS ORDERED: Gadolinium Contrast Agent (WT Based) IV PRN (20:16)
[2020-02-07] MEDS: 0.9 % Sodium Chloride 1,000 ML IVC SCH (23:29)
[2020-02-08] MEDS: diazePAM 5 MG TABLET PO SCH ×3 (05:01→14:30)
[2020-02-08 06:56] LABS: Basophils % 0.1 %; Eosinophils # 0.1 K/mcL (0.0-0.6); Eosinophils % 0.7 %; Hematocrit 39.1 % (35.3-44.9); Hemoglobin 12.6 g/dL (11.5-15.4); Lymphocytes # 2.5 K/mcL (0.6-4.6); Lymphocytes % 36.2 %; Mean Corpuscular HGB Conc 32.2 g/dL (31.6-35.5); Mean Corpuscular Hemoglobin 30.4 pg (28.0-33.3); Mean Corpuscular Volume 94.4 fL (83.0-100.0); Mean Platelet Volume 10.2 fL (9.4-12.4); Monocytes # 0.6 K/mcL (0.0-1.3); Monocytes % 8.5 %; Neutrophils # 3.7 K/mcL (1.6-8.9); Platelet Count 317 K/mcL (140-400); Red Blood Count 4.14 M/mcL (3.82-4.97); Segmented Neutrophils % 54.5 %; White Blood Count 6.9 K/mcL (4.3-11.1)
[2020-02-08 07:02] LABS: INR 1.1; Prothrombin Time 12.8 Seconds (9.4-12.1)
[2020-02-08 07:12] LABS: BUN/Creatinine Ratio 16 (6-26); Blood Urea Nitrogen 14 mg/dL (6-20); Calcium 9.2 mg/dL (8.6-10.3); Carbon Dioxide 27 mEq/L (23-29); Chloride 105 mEq/L (98-107); Chol/HDL Ratio 3.2 (0-4.9); Cholesterol 180 mg/dL (< 200); Glucose 102 mg/dL (70-105); HDL Cholesterol 56 mg/dL (40-59); LDL Cholesterol,Calculated 98 mg/dL (< 100); Osmolality,Calculated 293 (280-300); Phosphorous 2.4 mg/dL (2.7-4.5); Potassium 3.7 mEq/L (3.5-5.1); Sodium 141 mEq/L (136-145); Triglycerides 128 mg/dL (< 150); eGFR For African Americans > 60 (> 60); eGFR For Non-African Americans > 60 (> 60)
[2020-02-08] MEDS: 0.9 % Sodium Chloride 1,000 ML IVC SCH (12:03)
[2020-02-08 20:12] VITALS: BP 137/99
== END 2020-02-08 22:00 | disposition left against medical advice (07) ==
LOC: EMEROOARM 17:27 → 3BNU 17:27
PROVIDERS: ADMIT Family Medicine; ATTEND Family Medicine

== ENCOUNTER 2020-12-05 04:12 | Inpatient (IN) ==
[2020-12-05 05:08] LABS: Basophils % 0.2 %; Eosinophils % 0.3 %; Immature Granulocytes % 0.2 % (0-4); Lymphocytes # 2.3 K/mcL (0.6-4.6); Mean Corpuscular HGB Conc 33.3 g/dL (31.6-35.5); Mean Corpuscular Hemoglobin 29.9 pg (28.0-33.3); Mean Corpuscular Volume 89.8 fL (83.0-100.0); Mean Platelet Volume 9.7 fL (9.4-12.4); Monocytes # 0.6 K/mcL (0.0-1.3); Monocytes % 5.9 %; Neutrophils # 6.5 K/mcL (1.6-8.9); Platelet Count 256 K/mcL (140-400); Red Blood Count 4.01 M/mcL (3.82-4.97); Red Cell Distribution Width 13.8 % (11.5-14.5); Segmented Neutrophils % 69.4 %; White Blood Count 9.4 K/mcL (4.3-11.1)
[2020-12-05 05:10] LABS: Bilirubin,Urine Negative (Negative); Blood,Urine Negative (Negative); Clarity,Urine Clear (Clear); Color,Urine Light-Yellow (Yellow); Glucose,Urine (UA) Normal (Normal); Ketones,Urine Negative (Negative); Leukocyte Esterase,Urine Large (Negative); Mucus,Urine Few per lpf (None-Few); Nitrite,Urine Negative (Negative); PH,Urine 6.5 pH Units (5.0-8.0); Protein,Urine Negative (Neg-Trace); RBC,Urine 0-3 per hpf (0-3); Specific Gravity,Urine 1.014 (1.010-1.025); Squamous Epithelial Cell,Urine Few per hpf (None-Few); Urobilinogen,Urine Normal (Normal); WBC,Urine 50-100 per hpf (0-3)
[2020-12-05 05:13] LABS: Amphetamine Screen,Urine Negative ng/mL (Cutoff=1000); Barbiturate Screen,Urine Negative ng/mL (Cutoff=200); Benzodiazepines Screen,Urine Positive ng/mL (Cutoff=200); Cannabinoid Screen,Urine Negative ng/mL (Cutoff = 50); Cocaine Screen,Urine Negative ng/mL (Cutoff= 300); Opiate Screen,Urine Negative ng/mL (Cutoff=300); Phencyclidine Screen,Urine Negative ng/mL (Cutoff=25)
[2020-12-05 05:30] LABS: Acetaminophen < 10 mcg/mL (10-20); BUN/Creatinine Ratio 15 (6-26); Blood Urea Nitrogen 13 mg/dL (6-20); Calcium 9.1 mg/dL (8.6-10.3); Carbon Dioxide 25 mEq/L (23-29); Chloride 107 mEq/L (98-107); Chol/HDL Ratio 3.4 (0-4.9); Cholesterol 168 mg/dL (< 200); Ethanol < 10 mg/dL (Less than 10); Glucose 141 mg/dL (70-105); HDL Cholesterol 50 mg/dL (40-59); LDL Cholesterol,Calculated 100 mg/dL (< 100); Osmolality,Calculated 292 (280-300); Potassium 3.6 mEq/L (3.5-5.1); Salicylate < 2.5 mg/dL (15.0-30.0); Sodium 140 mEq/L (136-145); Triglycerides 89 mg/dL (< 150); eGFR For African Americans > 60 (> 60); eGFR For Non-African Americans > 60 (> 60)
[2020-12-05 06:03] LABS: Estimated Average Glucose 128 mg/dl; Hemoglobin A1C 6.1 %
[2020-12-05] MEDS ORDERED: *HR* LORazepam 1 MG TABLET PO PRN (09:21)
[2020-12-05] MEDS ORDERED: *HR* LORazepam 2 MG/ML VIAL IM PRN (09:21)
[2020-12-05] MEDS ORDERED: haloperidoL 5 MG TABLET PO PRN (09:21)
[2020-12-05] MEDS ORDERED: hydrOXYzine pamoate 25 MG CAPSULE PO PRN (09:21)
[2020-12-05] MEDS ORDERED: Haloperidol Lactate 5 MG/ML VIAL IM PRN (09:21)
[2020-12-05] MEDS: Acetaminophen 325 MG TABLET PO PRN ×2 (14:17→20:28)
[2020-12-05] MEDS ORDERED: MOM Conc 10 ML UD.LIQ PO PRN (15:26)
[2020-12-05] MEDS ORDERED: Mag Hydrox/Al Hydrox/Simeth 30 ML UDC PO PRN (15:26)
[2020-12-05] MEDS: ALPRAZolam 1 MG TABLET PO SCH (20:28)
[2020-12-05] MEDS ORDERED: cloNIDine HCL 0.1 MG TABLET PO ONE (20:35)
[2020-12-05] MEDS ORDERED: Mirtazapine 15 MG TABLET PO SCH (21:00)
[2020-12-06] MEDS ORDERED: (Cariprazine Hcl [Vraylar] 1.5 MG Capsule) PO SCH (08:00)
[2020-12-06 08:11] VITALS: BP 153/103
[2020-12-06] MEDS ORDERED: Isosorbide MONOnitrate (24 HR) 60 MG TAB.ER.24H PO SCH (09:00)
[2020-12-06] MEDS: ALPRAZolam 1 MG TABLET PO SCH (09:12)
== END 2020-12-06 12:30 | disposition home or self-care (01) | DRG 754 ==
LOC: EMEROOARM 04:12 → 1ANU 08:54 → INTOOBSV 08:54 → 1ANU 10:35
PROVIDERS: ADMIT Psychiatry & Neurology Psychiatry; ATTEND Psychiatry & Neurology Psychiatry

== ENCOUNTER 2021-06-09 09:05 | Observation (INO) ==
[2021-06-09] MEDS ORDERED: Isovue-370 500 ML BOTTLE IVP ONE (11:29)
[2021-06-09 11:40] LABS: Basophils % 0.3 %; Eosinophils # 0.1 K/mcL (0.0-0.6); Eosinophils % 1.3 %; Hematocrit 38.7 % (35.3-44.9); Hemoglobin 12.6 g/dL (11.5-15.4); Lymphocytes # 1.9 K/mcL (0.6-4.6); Lymphocytes % 30.1 %; Mean Corpuscular HGB Conc 32.6 g/dL (31.6-35.5); Mean Corpuscular Hemoglobin 30.3 pg (28.0-33.3); Mean Platelet Volume 9.5 fL (9.4-12.4); Monocytes # 0.5 K/mcL (0.0-1.3); Monocytes % 7.4 %; Neutrophils # 3.9 K/mcL (1.6-8.9); Platelet Count 269 K/mcL (140-400); Red Blood Count 4.16 M/mcL (3.82-4.97); Red Cell Distribution Width 14.6 % (11.5-14.5); Segmented Neutrophils % 60.9 %; White Blood Count 6.3 K/mcL (4.3-11.1)
[2021-06-09 12:03] LABS: Prothrombin Time 11.5 Seconds (9.4-12.1)
[2021-06-09 12:08] LABS: BUN/Creatinine Ratio 10 (6-26); Blood Urea Nitrogen 9 mg/dL (6-20); Calcium 9.1 mg/dL (8.6-10.3); Carbon Dioxide 27 mEq/L (23-29); Chloride 105 mEq/L (98-107); Glucose 117 mg/dL (70-105); Osmolality,Calculated 290 (280-300); Potassium 3.9 mEq/L (3.5-5.1); Sodium 140 mEq/L (136-145); Troponin I < 0.03 ng/mL (< 0.04); eGFR For African Americans > 60 (> 60); eGFR For Non-African Americans > 60 (> 60)
[2021-06-09] MEDS: Nitroglycerin 0.4 MG TAB.SUBL SL SCH ×3 (13:12→16:15)
[2021-06-09] MEDS ORDERED: Aspirin 325 MG TABLET PO ONE (13:59)
[2021-06-09] MEDS ORDERED: Melatonin 3 MG TABLET PO PRN (15:02)
[2021-06-09] MEDS ORDERED: Naloxone 0.4 MG/ML INJ IVP PRN (15:02)
[2021-06-09] MEDS ORDERED: Ondansetron ODT 4 MG TAB.RAPDIS SL PRN (15:02)
[2021-06-09] MEDS: Isosorbide MONOnitrate (24 HR) 60 MG TAB.ER.24H PO SCH (15:32)
[2021-06-09] MEDS ORDERED: Mirtazapine 15 MG TABLET PO SCH (21:00)
[2021-06-09] MEDS: ALPRAZolam 1 MG TABLET PO PRN (21:20)
[2021-06-09] MEDS ORDERED: *HR* HYDROcodone/Acet 7.5/325 mg TABLET PO ONE (22:06)
[2021-06-10] MEDS ORDERED: Regadenoson 0.4 MG/5 ML SYRINGE IVP ONE (06:43)
[2021-06-10] MEDS ORDERED: (Cariprazine Hcl [Vraylar] 1.5 MG Capsule) PO SCH (09:00)
[2021-06-10] MEDS ORDERED: Acetaminophen 325 MG TABLET PO PRN (09:44)
[2021-06-10] MEDS: Isosorbide MONOnitrate (24 HR) 60 MG TAB.ER.24H PO SCH (09:51)
[2021-06-10] MEDS ORDERED: ALPRAZolam 1 MG TABLET PO PRN (13:25)
[2021-06-10] MEDS: ALPRAZolam 1 MG TABLET PO PRN (14:12)
[2021-06-10 14:30] VITALS: BP 133/94; PULSE 81; TEMP 98.5; O2SAT 94
[2021-06-10] MEDS ORDERED: Perphenazine 2 MG TABLET PO SCH (21:00)
[2021-06-10] MEDS ORDERED: PARoxetine 20 MG TABLET PO SCH (21:00)
[2021-06-10] MEDS ORDERED: Divalproex (24 HR) 250 MG TABLET PO SCH (21:00)
[2021-06-11] MEDS ORDERED: Aspirin 81 MG TAB.CHEW PO SCH (09:00)
[2021-06-11] MEDS ORDERED: Mirtazapine 15 MG TABLET PO SCH (09:00)
== END 2021-06-10 16:50 | disposition home or self-care (01) ==
LOC: 3BNU 09:05 → EMEROOARM 09:05 → SUATTDRO 14:41 → 3BNU 15:20
PROVIDERS: ADMIT Pharmacist; ATTEND Internal Medicine

== ENCOUNTER 2021-11-04 23:01 | Observation (INO) ==
[2021-11-04 23:28] LABS: Basophils % 0.1 %; Eosinophils % 0.1 %; Hematocrit 32.6 % (35.3-44.9); Hemoglobin 10.8 g/dL (11.5-15.4); Immature Granulocytes % 0.3 % (0-4); Lymphocytes # 1.8 K/mcL (0.6-4.6); Mean Corpuscular HGB Conc 33.1 g/dL (31.6-35.5); Mean Corpuscular Hemoglobin 29.8 pg (28.0-33.3); Mean Corpuscular Volume 89.8 fL (83.0-100.0); Mean Platelet Volume 9.9 fL (9.4-12.4); Monocytes # 0.8 K/mcL (0.0-1.3); Neutrophils # 8.8 K/mcL (1.6-8.9); Platelet Count 285 K/mcL (140-400); Red Blood Count 3.63 M/mcL (3.82-4.97); Red Cell Distribution Width 15.5 % (11.5-14.5); Segmented Neutrophils % 76.5 %; White Blood Count 11.5 K/mcL (4.3-11.1)
[2021-11-04] MEDS ORDERED: Isovue-370 500 ML BOTTLE IVP ONE (23:31)
[2021-11-04 23:54] LABS: Alanine Aminotransferase 63 Units/L (7-52); Albumin 3.7 g/dL (3.5-5.7); Albumin/Globulin Ratio 1.2 (1.1-2.2); Alkaline Phosphatase 121 Units/L (34-104); Aspartate Amino Transferase 74 Units/L (13-39); BUN/Creatinine Ratio 20 (6-26); Bilirubin,Total 0.9 mg/dL (0.3-1.0); Blood Urea Nitrogen 19 mg/dL (6-20); Calcium 8.9 mg/dL (8.6-10.3); Carbon Dioxide 23 mEq/L (23-29); Chloride 106 mEq/L (98-107); Globulin 3.2 g/dL (2.4-3.5); Glucose 144 mg/dL (70-105); Osmolality,Calculated 289 (280-300); Potassium 3.7 mEq/L (3.5-5.1); Sodium 137 mEq/L (136-145); Total Protein 6.9 g/dL (6.4-8.9); Troponin I < 0.03 ng/mL (< 0.04); eGFR For African Americans > 60 (> 60); eGFR For Non-African Americans > 60 (> 60)
[2021-11-05] MEDS ORDERED: Melatonin 3 MG TABLET PO PRN (01:56)
[2021-11-05] MEDS ORDERED: Naloxone 0.4 MG/ML INJ IVP PRN (01:56)
[2021-11-05] MEDS ORDERED: Acetaminophen 325 MG TABLET PO PRN (01:56)
[2021-11-05] MEDS ORDERED: *HR* HYDROcodone/Acet 5/325 mg TABLET PO PRN (01:56)
[2021-11-05] MEDS ORDERED: Perflutren Lipid Microsphere 1.3 ML in 0.9 % Sodium Chloride 8.7 ML IVP PRN (02:00)
[2021-11-05] MEDS ORDERED: Nitroglycerin 0.4 MG TAB.SUBL SL PRN (02:30)
[2021-11-05] MEDS: ALPRAZolam 0.5 MG TABLET PO PRN ×2 (02:49→13:59)
[2021-11-05] MEDS: *HR* OxyCODONE Immed Rel 5 MG TABLET PO PRN ×2 (02:49→13:59)
[2021-11-05 06:05] LABS: Hemoglobin 10.7 g/dL (11.5-15.4); Mean Corpuscular HGB Conc 33.4 g/dL (31.6-35.5); Mean Corpuscular Hemoglobin 30.1 pg (28.0-33.3); Mean Corpuscular Volume 90.1 fL (83.0-100.0); Mean Platelet Volume 9.9 fL (9.4-12.4); Platelet Count 262 K/mcL (140-400); Red Blood Count 3.55 M/mcL (3.82-4.97); Red Cell Distribution Width 15.4 % (11.5-14.5); White Blood Count 8.5 K/mcL (4.3-11.1)
[2021-11-05 06:18] LABS: BUN/Creatinine Ratio 19 (6-26); Blood Urea Nitrogen 17 mg/dL (6-20); Calcium 8.9 mg/dL (8.6-10.3); Carbon Dioxide 26 mEq/L (23-29); Chloride 107 mEq/L (98-107); Chol/HDL Ratio 2.5 (0-4.9); Cholesterol 158 mg/dL (< 200); Glucose 127 mg/dL (70-105); HDL Cholesterol 63 mg/dL (40-59); LDL Cholesterol,Calculated 81 mg/dL (< 100); Magnesium 2.1 mg/dL (1.6-2.6); Osmolality,Calculated 289 (280-300); Sodium 138 mEq/L (136-145); Triglycerides 72 mg/dL (< 150); eGFR For African Americans > 60 (> 60); eGFR For Non-African Americans > 60 (> 60)
[2021-11-05] MEDS: Ondansetron ODT 4 MG TAB.RAPDIS SL PRN ×2 (06:33→13:59)
[2021-11-05 07:05] LABS: Bilirubin,Urine Negative (Negative); Blood,Urine Negative (Negative); Clarity,Urine Clear (Clear); Color,Urine Yellow (Yellow); Glucose,Urine (UA) Normal (Normal); Ketones,Urine Negative (Negative); Leukocyte Esterase,Urine Negative (Negative); Nitrite,Urine Negative (Negative); Protein,Urine Trace mg/dL (Neg-Trace); Specific Gravity,Urine > 1.030 (1.010-1.025)
[2021-11-05 08:32] LABS: Amphetamine Screen,Urine Negative ng/mL (Cutoff=1000); Barbiturate Screen,Urine Negative ng/mL (Cutoff=200); Benzodiazepines Screen,Urine Positive ng/mL (Cutoff=200); Cannabinoid Screen,Urine Positive ng/mL (Cutoff = 50); Cocaine Screen,Urine Negative ng/mL (Cutoff= 300); Opiate Screen,Urine Negative ng/mL (Cutoff=300); Phencyclidine Screen,Urine Negative ng/mL (Cutoff=25)
[2021-11-05 09:06] LABS: Estimated Average Glucose 160 mg/dl; Hemoglobin A1C 7.2 %
[2021-11-05] MEDS: Aspirin 81 MG TAB.CHEW PO SCH (10:07)
[2021-11-05] MEDS ORDERED: Gabapentin 300 MG CAPSULE PO PRN (14:07)
[2021-11-05] MEDS ORDERED: rOPINIRole 1 MG TABLET PO PRN (14:07)
[2021-11-05] MEDS ORDERED: 0.9 % Sodium Chloride 1,000 ML ONE ×2 (15:29→15:34)
[2021-11-05] MEDS ORDERED: Heparin 1,000 UNITS/500 mL 0 ML ONE (15:29)
[2021-11-05] MEDS ORDERED: *HR* Heparin 10,000 UNIT/10 ML VIAL ONE (15:29)
[2021-11-05] MEDS ORDERED: ISOVUE-370 200 ML INFUS..BTL ONE (15:29)
[2021-11-05] MEDS ORDERED: Nitroglycerin 1,000 MCG/5 ML VIAL IV ONE (15:30)
[2021-11-05] MEDS ORDERED: 0.9 % Sodium Chloride 1,000 ML IVC ONE (16:19)
[2021-11-05] MEDS ORDERED: Mirtazapine 15 MG TABLET PO SCH (21:00)
[2021-11-05] MEDS ORDERED: Divalproex (24 HR) 500 MG TABLET PO SCH (21:00)
[2021-11-06 03:30] LABS: Basophils % 0.1 %; Eosinophils % 0.1 %; Hematocrit 32.5 % (35.3-44.9); Hemoglobin 10.5 g/dL (11.5-15.4); Immature Granulocytes % 0.4 % (0-4); Lymphocytes # 0.7 K/mcL (0.6-4.6); Lymphocytes % 5.7 %; Mean Corpuscular HGB Conc 32.3 g/dL (31.6-35.5); Mean Corpuscular Hemoglobin 29.6 pg (28.0-33.3); Mean Corpuscular Volume 91.5 fL (83.0-100.0); Mean Platelet Volume 10.1 fL (9.4-12.4); Monocytes # 0.7 K/mcL (0.0-1.3); Monocytes % 6.3 %; Neutrophils # 10.2 K/mcL (1.6-8.9); Platelet Count 236 K/mcL (140-400); Red Blood Count 3.55 M/mcL (3.82-4.97); Red Cell Distribution Width 15.8 % (11.5-14.5); Segmented Neutrophils % 87.4 %; White Blood Count 11.7 K/mcL (4.3-11.1)
[2021-11-06 04:22] LABS: BUN/Creatinine Ratio 15 (6-26); Blood Urea Nitrogen 16 mg/dL (6-20); Calcium 8.5 mg/dL (8.6-10.3); Carbon Dioxide 25 mEq/L (23-29); Chloride 105 mEq/L (98-107); Glucose 140 mg/dL (70-105); Osmolality,Calculated 287 (280-300); Potassium 4.4 mEq/L (3.5-5.1); Sodium 137 mEq/L (136-145); eGFR For African Americans > 60 (> 60); eGFR For Non-African Americans 53 (> 60)
[2021-11-06] MEDS: Aspirin 81 MG TAB.CHEW PO SCH (08:08)
[2021-11-06] MEDS ORDERED: Isosorbide MONOnitrate (24 HR) 60 MG TAB.ER.24H PO SCH (09:00)
[2021-11-06] MEDS ORDERED: Heparin 1,000 UNITS/500 mL 500 ML ONE (10:05)
[2021-11-06] MEDS ORDERED: 0.9 % Sodium Chloride 1,000 ML ONE ×2 (10:05→10:18)
[2021-11-06] MEDS ORDERED: ISOVUE-370 200 ML INFUS..BTL ONE (10:06)
[2021-11-06] MEDS ORDERED: *HR* Heparin 10,000 UNIT/10 ML VIAL ONE (10:06)
[2021-11-06] MEDS ORDERED: Nitroglycerin 1,000 MCG/5 ML VIAL IV ONE (10:06)
[2021-11-06] MEDS ORDERED: *HR* FentaNYL (PF) 100 MCG/2 ML VIAL ONE (10:19)
[2021-11-06] MEDS ORDERED: *HR* Midazolam HCl 2 MG/2 ML VIAL ONE (10:19)
[2021-11-06] MEDS: *HR* OxyCODONE Immed Rel 5 MG TABLET PO PRN (11:46)
[2021-11-06 13:22] VITALS: TEMP 98.2; O2SAT 95
[2021-11-06 13:59] VITALS: BP 114/75; PULSE 78
== END 2021-11-06 14:15 | disposition left against medical advice (07) ==
LOC: 3BNU 23:01 → EMEROOARM 23:01 → SUATTDRO 11-05 02:07 → 3BNU 11-05 02:27
PROVIDERS: ADMIT Internal Medicine; ATTEND Registered Nurse

== ENCOUNTER 2022-03-05 17:46 | Observation (INO) ==
[2022-03-05 18:30] LABS: Basophils % 0.2 %; Eosinophils # 0.1 K/mcL (0.0-0.6); Eosinophils % 0.7 %; Hematocrit 34.6 % (35.3-44.9); Hemoglobin 11.2 g/dL (11.5-15.4); Immature Granulocytes % 0.3 % (0-4); Lymphocytes # 2.4 K/mcL (0.6-4.6); Lymphocytes % 27.5 %; Mean Corpuscular HGB Conc 32.4 g/dL (31.6-35.5); Mean Corpuscular Hemoglobin 28.6 pg (28.0-33.3); Mean Corpuscular Volume 88.3 fL (83.0-100.0); Monocytes # 0.6 K/mcL (0.0-1.3); Monocytes % 6.3 %; Neutrophils # 5.8 K/mcL (1.6-8.9); Platelet Count 305 K/mcL (140-400); Red Blood Count 3.92 M/mcL (3.82-4.97); Red Cell Distribution Width 14.6 % (11.5-14.5); White Blood Count 8.9 K/mcL (4.3-11.1)
[2022-03-05 18:37] LABS: INR 1.1; Prothrombin Time 12.2 Seconds (9.4-12.1)
[2022-03-05 18:40] LABS: Activated Partial Thrombo Time 37.5 Seconds (26.0-36.0)
[2022-03-05 18:56] LABS: BUN/Creatinine Ratio 12 (6-26); Blood Urea Nitrogen 12 mg/dL (6-20); Calcium 9.1 mg/dL (8.6-10.3); Carbon Dioxide 25 mEq/L (23-29); Chloride 104 mEq/L (98-107); Glucose 94 mg/dL (70-105); Osmolality,Calculated 288 (280-300); Potassium 3.8 mEq/L (3.5-5.1); Sodium 139 mEq/L (136-145); Troponin I < 0.03 ng/mL (< 0.04)
[2022-03-05] MEDS ORDERED: Morphine Sulfate 2 MG/ML SYRINGE IVP ONE (20:22)
[2022-03-05] MEDS ORDERED: Iopamidol - 370 500 ML MLS IVP ONE ×2 (20:22→21:11)
[2022-03-05 21:01] LABS: Basophils % 0.2 %; Eosinophils # 0.1 K/mcL (0.0-0.6); Eosinophils % 0.6 %; Immature Granulocytes % 0.1 % (0-4); Lymphocytes # 2.2 K/mcL (0.6-4.6); Lymphocytes % 27.1 %; Mean Corpuscular HGB Conc 32.4 g/dL (31.6-35.5); Mean Corpuscular Hemoglobin 28.4 pg (28.0-33.3); Mean Corpuscular Volume 87.9 fL (83.0-100.0); Mean Platelet Volume 9.7 fL (9.4-12.4); Monocytes # 0.5 K/mcL (0.0-1.3); Monocytes % 6.3 %; Neutrophils # 5.3 K/mcL (1.6-8.9); Platelet Count 284 K/mcL (140-400); Red Blood Count 3.87 M/mcL (3.82-4.97); Red Cell Distribution Width 14.6 % (11.5-14.5); Segmented Neutrophils % 65.7 %; White Blood Count 8.1 K/mcL (4.3-11.1)
[2022-03-05 21:08] LABS: INR 1.1; Prothrombin Time 12.5 Seconds (9.4-12.1)
[2022-03-05 21:23] LABS: Alanine Aminotransferase 20 Units/L (7-52); Albumin 3.7 g/dL (3.5-5.7); Albumin/Globulin Ratio 1.1 (1.1-2.2); Alkaline Phosphatase 99 Units/L (34-104); Aspartate Amino Transferase 20 Units/L (13-39); BUN/Creatinine Ratio 10 (6-26); Bilirubin,Direct 0.1 mg/dL (0.0-0.2); Bilirubin,Indirect 0.6 mg/dL (0.0-1.0); Bilirubin,Total 0.7 mg/dL (0.3-1.0); Blood Urea Nitrogen 11 mg/dL (6-20); Calcium 9.1 mg/dL (8.6-10.3); Carbon Dioxide 27 mEq/L (23-29); Chloride 104 mEq/L (98-107); Globulin 3.3 g/dL (2.4-3.5); Glucose 105 mg/dL (70-105); Lipase 22 Units/L (11-82); Osmolality,Calculated 286 (280-300); Potassium 3.8 mEq/L (3.5-5.1); Sodium 138 mEq/L (136-145)
[2022-03-05 21:24] LABS: Troponin I < 0.03 ng/mL (< 0.04)
[2022-03-05 21:35] LABS: Influenza A PCR Negative (Negative); Influenza B PCR Negative (Negative); Resp. Syncytial Virus PCR Negative (Negative)
[2022-03-05 21:36] LABS: SARS-CoV-2 by PCR (In House) Negative (Negative)
[2022-03-05 22:53] LABS: Bilirubin,Urine Negative (Negative); Blood,Urine Negative (Negative); Clarity,Urine Clear (Clear); Color,Urine Colorless (Yellow); Glucose,Urine (UA) Normal (Normal); Ketones,Urine Negative (Negative); Leukocyte Esterase,Urine Moderate (Negative); Mucus,Urine Few per lpf (None-Few); Nitrite,Urine Negative (Negative); PH,Urine 6.5 pH Units (5.0-8.0); Protein,Urine Negative (Neg-Trace); RBC,Urine 0-3 per hpf (0-3); Specific Gravity,Urine > 1.030 (1.010-1.025); Squamous Epithelial Cell,Urine Moderate per hpf (None-Few); Urobilinogen,Urine Normal (Normal)
[2022-03-05] MEDS ORDERED: Ondansetron 4 MG/2 ML VIAL IVP PRN (23:25)
[2022-03-05] MEDS ORDERED: Acetaminophen 325 MG TABLET PO PRN (23:25)
[2022-03-05] MEDS ORDERED: Naloxone 0.4 MG/ML INJ IVP PRN (23:25)
[2022-03-06] MEDS: 0.9 % Sodium Chloride 1,000 ML IVC SCH ×2 (01:19→11:20)
[2022-03-06] MEDS: Piperacillin/Tazobactam 3.375 GM in 0.9 % Sodium Chloride Mini Bag 100 ML IVPB SCH ×2 (01:19→07:35)
[2022-03-06 05:06] LABS: Basophils % 0.3 %; Eosinophils # 0.1 K/mcL (0.0-0.6); Eosinophils % 0.9 %; Hematocrit 31.8 % (35.3-44.9); Hemoglobin 10.2 g/dL (11.5-15.4); Immature Granulocytes % 0.2 % (0-4); Lymphocytes # 2.2 K/mcL (0.6-4.6); Lymphocytes % 34.3 %; Mean Corpuscular HGB Conc 32.1 g/dL (31.6-35.5); Mean Corpuscular Hemoglobin 28.3 pg (28.0-33.3); Mean Corpuscular Volume 88.3 fL (83.0-100.0); Monocytes # 0.5 K/mcL (0.0-1.3); Monocytes % 8.3 %; Neutrophils # 3.6 K/mcL (1.6-8.9); Platelet Count 264 K/mcL (140-400); Red Cell Distribution Width 14.6 % (11.5-14.5); White Blood Count 6.5 K/mcL (4.3-11.1)
[2022-03-06 05:30] LABS: BUN/Creatinine Ratio 11 (6-26); Blood Urea Nitrogen 12 mg/dL (6-20); Calcium 8.6 mg/dL (8.6-10.3); Carbon Dioxide 26 mEq/L (23-29); Chloride 105 mEq/L (98-107); Chol/HDL Ratio 4.1 (0-4.9); Cholesterol 164 mg/dL (< 200); Glucose 140 mg/dL (70-105); HDL Cholesterol 40 mg/dL (40-59); LDL Cholesterol,Calculated 91 mg/dL (< 100); Osmolality,Calculated 288 (280-300); Potassium 3.7 mEq/L (3.5-5.1); Sodium 138 mEq/L (136-145); Triglycerides 165 mg/dL (< 150); Troponin I < 0.03 ng/mL (< 0.04)
[2022-03-06 11:17] LABS: C-Reactive Protein 36 mg/L (Less than 10)
[2022-03-06 14:48] VITALS: BP 128/83; PULSE 95; TEMP 98.4; O2SAT 95
== END 2022-03-06 16:29 | disposition home or self-care (01) ==
LOC: 3BNU 17:46 → EMEROOARM 17:46 → SUATTDRO 23:06 → 3BNU 03-06 00:35
PROVIDERS: ADMIT Internal Medicine; ATTEND Nurse Practitioner